=== PATIENT | male | born 1975 | race Two or more races ===

== ENCOUNTER → 2018-01-01 | Day surgery (SDC) | payer OTHER ==
--- NOTE | 2018-01-01 11:53 | RADIOLOGY REPORT (SQ) ---
EXAM DESCRIPTION: MRI RT UPPER JOINT WITH COMPLETED DATE/TIME: 01/01/2018 11:14 am REASON FOR STUDY: RT SHOULDER PAIN COMPARISON: None. TECHNIQUE: Right shoulder images acquired and stored on PACS. Oblique coronal, oblique sagittal, and axial imaging to include fat sensitive sequences as T1, water sensitive sequences as FST2/STIR, and contrast sensitive sequences as FST1. LIMITATIONS: None. FINDINGS: JOINT DISTENTION: Adequate distention for interpretation. No leakage of contrast into the subacromial/subdeltoid bursa. BONE MARROW AND CORTEX: Tiny subcortical cysts in the posterior right humeral head greater tuberosity . No marrow signal abnormality worrisome for occult fracture. AC JOINT: Type II acromion. Mild acromioclavicular joint bony spurring is present with mild narrowing of the subacromial space. Minimal subacromial bursal fluid. GLENOHUMERAL JOINT: No subluxation or dislocation. No focal chondral defects or reactive bone changes . ROTATOR CUFF: There is mild tendinopathy along the distal most supra and infraspinatus tendons, best shown on coronal images 7-12. No full-thickness tear. subscapularis intact. LABRUM AND BICEPS LABRAL COMPLEX: Normal signal in the rotator interval without tear of the superior glenohumeral ligament. Superior labrum, intra-articular long head biceps intact. Distal biceps in no rmal anatomic location in bicipital groove. No paralabral cysts. INFERIOR LABRAL COMPLEX: Bony glenoid and labrum intact. IGHL intact without thickening or tear. No p aralabral cysts. ADJACENT SOFT TISSUES: No masses or nodes. OTHER: No other significant finding. IMPRESSION: Mild distal supra and infraspinatus tendinopathy. TECHNICAL DOCUMENTATION: JOB ID: [id number] [employer]- All Rights Reserved Reading location - IP/workstation name: [facility]
--- NOTE | 2018-01-01 12:39 | RADIOLOGY REPORT (SQ) ---
EXAM DESCRIPTION: ARTHRO SHOULDER INJECTION; FLUORO/NEEDLE PLACEMENT COMPLETED DATE/TIME: 01/01/2018 10:41 am REASON FOR STUDY: RT SHOULDER PAIN COMPARISON: None. FLUOROSCOPY TIME: 16 seconds 1 digital radiographic images saved to PACS. LIMITATIONS: None. PROCEDURE: Procedure, risks, benefits and alternatives explained to patient who then gave written co nsent. The posterior right glenohumeral jointwas marked and a time out was called for correct procedu re verification. Posterior entry site marked using fluoroscopic guidance. Shoulder prepped and drap ed using sterile technique. Local anesthesia achieved using 6 mL of 1% lidocaine injection. 22 gaug e spinal needle introduced into the joint space under direct fluoroscopic visualization. Non-ionic co ntrast instilled to confirm intra-articular position. Dilute gadolinium solution then injected. Need le removed and entry site covered with sterile bandage. No immediate complications noted. TECHNIQUE: Digital images acquired during fluoroscopy and stored on PACS. Patient immediately take n to the MR suite for additional imaging. INJECTION LOCATION: Right posterior glenohumeral joint CONTRAST TYPE AND AMOUNT: 1 mL of Isovue 370 was injected to confirm intra-articular needle placement followed by 10 mL of dilute Prohance/Saline mixture. IMPRESSION: SUCCESSFUL NEEDLE PLACEMENT AND INJECTION FOR RIGHT SHOULDER MR ARTHROGRAM USING POSTERI OR APPROACH. COMMENT: Quality ID [id number]: Final reports for procedures using fluoroscopy that document radiation exp osure indices, or exposure time and number of fluorographic images (if radiation exposure indices are not available) TECHNICAL DOCUMENTATION: JOB ID: [id number] [employer]- All Rights Reserved Reading location - IP/workstation name: [facility]
--- NOTE | 2018-01-01 12:39 | RADIOLOGY REPORT (SQ) ---
EXAM DESCRIPTION: ARTHRO SHOULDER INJECTION; FLUORO/NEEDLE PLACEMENT COMPLETED DATE/TIME: 01/01/2018 10:41 am REASON FOR STUDY: RT SHOULDER PAIN COMPARISON: None. FLUOROSCOPY TIME: 16 seconds 1 digital radiographic images saved to PACS. LIMITATIONS: None. PROCEDURE: Procedure, risks, benefits and alternatives explained to patient who then gave written co nsent. The posterior right glenohumeral jointwas marked and a time out was called for correct procedu re verification. Posterior entry site marked using fluoroscopic guidance. Shoulder prepped and drap ed using sterile technique. Local anesthesia achieved using 6 mL of 1% lidocaine injection. 22 gaug e spinal needle introduced into the joint space under direct fluoroscopic visualization. Non-ionic co ntrast instilled to confirm intra-articular position. Dilute gadolinium solution then injected. Need le removed and entry site covered with sterile bandage. No immediate complications noted. TECHNIQUE: Digital images acquired during fluoroscopy and stored on PACS. Patient immediately take n to the MR suite for additional imaging. INJECTION LOCATION: Right posterior glenohumeral joint CONTRAST TYPE AND AMOUNT: 1 mL of Isovue 370 was injected to confirm intra-articular needle placement followed by 10 mL of dilute Prohance/Saline mixture. IMPRESSION: SUCCESSFUL NEEDLE PLACEMENT AND INJECTION FOR RIGHT SHOULDER MR ARTHROGRAM USING POSTERI OR APPROACH. COMMENT: Quality ID 145: Final reports for procedures using fluoroscopy that document radiation exp osure indices, or exposure time and number of fluorographic images (if radiation exposure indices are not available) TECHNICAL DOCUMENTATION: JOB ID: [id number] [employer]- All Rights Reserved Reading location - IP/workstation name: [facility]
== END ==
LOC: RAD 09:57
PROVIDERS: ATTEND Orthopaedic Surgery
DX: M25.511 Pain in right shoulder (principal)
CPT/HCPCS: 73222; 77002; 23350; A9576